=== PATIENT | female | born 1990 | race Hispanic/Latino ===

== ENCOUNTER 2020-07-10 08:05 | Observation (INO) | payer OTHER ==
[~2020-07-10] VITALS: Ht 180.3 cm; Wt 100.2 kg
[2020-07-10 10:13] VITALS: BP 105/64
[2020-08-16] MEDS ORDERED: NPH,100V11 SQ ×2 (13:28)
== END 2020-07-10 10:38 | disposition home or self-care (01) ==
LOC: LDH 08:05
PROVIDERS: ADMIT Specialist; ATTEND Specialist
DX: O24.113 Pre-existing type 2 diabetes mellitus, in pregnancy, third trimester (principal); Z3A.32 32 weeks gestation of pregnancy
CPT/HCPCS: 59025; 76819; G0378 ×3

== ENCOUNTER 2020-07-14 13:53 | Observation (INO) | payer OTHER ==
[~2020-07-14] VITALS: Ht 180.3 cm; Wt 106.1 kg
[2020-07-14 14:48] VITALS: BP 109/61
[2020-07-14 15:07] VITALS: BP 109/61
== END 2020-07-14 15:40 | disposition home or self-care (01) ==
LOC: LDH 13:53
PROVIDERS: ADMIT Specialist; ATTEND Specialist
DX: O62.9 Abnormality of forces of labor, unspecified (principal); O24.913 Unspecified diabetes mellitus in pregnancy, third trimester; Z79.4 Long term (current) use of insulin; Z3A.32 32 weeks gestation of pregnancy
CPT/HCPCS: 59025; 76819; G0378